=== PATIENT | female | born 1965 | race Caucasian/White ===

== ENCOUNTER 2024-10-06 06:24 | Day surgery (SDC) | payer BC, SELFPAY | END 2024-10-06 10:50 | disposition home or self-care (01) | LOC: GI 06:24 | PROVIDERS: ATTENDING PHYSICIAN Internal Medicine | DX: Z12.11 Encounter for screening for malignant neoplasm of colon (principal); K64.4 Residual hemorrhoidal skin tags; K64.8 Other hemorrhoids; D12.3 Benign neoplasm of transverse colon | CPT/HCPCS: 45385; 88305 ==

== ENCOUNTER → 2025-08-03 15:28 | Outpatient (REF) | payer BC, SELFPAY | LOC: MRI 3T 15:28 | PROVIDERS: ATTENDING PHYSICIAN Surgery; FAMILY PHYSICIAN Family Medicine | DX: R92.2 Inconclusive mammogram (principal); Z80.3 Family history of malignant neoplasm of breast | CPT/HCPCS: 77049; A9585 ==